=== PATIENT | female | born 1955 | race Caucasian/White ===

== ENCOUNTER 2018-04-05 19:54 | Inpatient (IN) ==
--- NOTE | 2018-04-05 20:19 | Diag Imaging Result Doc PS360 ---
EXAM: CT HEAD W/O CONTRAST - 04/05/2018 HISTORY: new onset seizure TECHNIQUE: CT head without contrast COMPARISON: None. FINDINGS: There is no evidence of intracranial hemorrhage, mass effect, midline shift, or hydrocephalus. There is no evidence of infarct, although acute infarcts may not be immediately visible. There is no evidence of skull fracture. IMPRESSION: No visible acute intracranial abnormality. No hemorrhage or mass effect. This exam was performed using automated exposure control, adjustment of mA or kV according to patient size, and/or use of iterative reconstruction technique. Electronically signed by Chris Olivo 04/05/2018 8:17 PM
[2018-04-05] MEDS ORDERED: ZOFRAN IV ONE (20:56)
[2018-04-05] MEDS ORDERED: NS 1,000 ML IV ONE (20:57)
[2018-04-05] MEDS ORDERED: MORPHINE IV ONE (20:57)
[2018-04-05 22:20] LABS: URINE SOURCE CATH
[2018-04-05 22:27] LABS: BILIRUBIN URINE SMALL (NEGATIVE); BLOOD URINE SMALL (NEGATIVE); COLOR YELLOW; GLUCOSE URINE NEGATIVE (NEGATIVE); KETONE URINE 150 mg/dL (NEGATIVE); LEUKOCYTES URINE NEGATIVE (NEGATIVE); NITRITE URINE POSITIVE (NEGATIVE); PROTEIN URINE 100 mg/dL (NEGATIVE); SP GRAVITY URINE 1.028; TURBIDITY URINE HAZY (CLEAR); UR EPITHELIAL CELLS >10 /HPF (<10); URINE BACTERIA 4+ /HPF; URINE RBC <10 /HPF (<10); UROBILINOGEN URINE 3 mg/dL (NORMAL)
[2018-04-05 23:21] LABS: UR AMPHETAMINES QUAL NONE DETECTED (NONE DETECT); UR BARBITUATES QUAL NONE DETECTED (NONE DETECT); UR BENZODIAZEPIN QUAL PRESUMPTIVE POSITIVE (NONE DETECT); UR CANNABINOIDS QUAL NONE DETECTED (NONE DETECT); UR COCAINE QUAL NONE DETECTED (NONE DETECT); UR METHADONE QUAL NONE DETECTED (NONE DETECT); UR OPIATES QUAL NONE DETECTED (NONE DETECT); UR OXYCODONE QUAL NONE DETECTED (NONE DETECT); UR PCP QUAL NONE DETECTED (NONE DETECT)
[2018-04-05 23:35] LABS: EOS# 0.06 X1000 (0.0-0.7); EOS% 0.5 % (0.0-10.0); HEMATOCRIT 55.8 % (37.0-47.0); HEMOGLOBIN 18.8 g/dL (12.0-16.0); LYMPH# 1.67 X1000 (1.2-3.4); MCH 31.8 PG (27-31); MCHC 33.7 g/dL (33-37); MCV 94.4 FL (81-99); MONO# 0.92 X1000 (0.11-0.59); MONO% 7.7 % (1.7-9.3); MPV 10.9 FL (7.4-10.4); PLT 258 X1000 (130-400); RBC 5.91 XMIL (4.2-5.4); RDW 14.7 % (11.5-14.5); WBC 11.95 X1000 (4.8-10.8)
[2018-04-06 00:40] LABS: LYMPHS 20 % (21-51); MONO 2 % (1-9); SEGS 78 % (42-75)
[2018-04-06 01:32] LABS: AGAP 16; ALB/GLOB RATIO 1.2; ALBUMIN 4.1 g/dL (3.5-5.0); ALKALINE PHOSPHATASE 92 U/L (32-104); BUN 14 mg/dL (8-22); CALCIUM 9.8 mg/dL (8.8-10.2); CHLORIDE 103 mmol/L (98-107); COSMO 286; CREATININE 0.7 mg/dL (0.5-0.9); ESTIMATED GFR > 60; GLUCOSE 100 mg/dL (70-104); GOT 54 U/L (10-30); GPT 66 U/L (10-36); MAGNESIUM 2.4 mg/dL (1.5-2.7); POTASSIUM 3.1 mmol/L (3.5-5.1); SODIUM 143 mmol/L (136-145); TCO2 24 mmol/L (25-35); TOTAL BILIRUBIN 0.88 mg/dL (0.20-1.00); TOTAL PROTEIN 7.4 g/dL (6.3-8.3)
[2018-04-06] MEDS ORDERED: KLOR-CON PO ONE (02:25)
--- NOTE | 2018-04-06 02:27 | PROVIDER DOCUMENTATION ---
This chart was entered by Dawna Ojeda Scribe, acting as scribe for Bernard Arreaga MD. HPI-Syncope/Dizziness - General Chief Complaint: Seizure Stated Complaint: POSSIBLE SEIZURE Time Seen by Provider: 04/05/18 20:25 Source: patient Allergies/Adverse Reactions: Patient Allergies Allergy/AdvReac Type Severity Reaction Status Date / Time No Known Allergies Allergy Verified 04/06/18 00:40 - History of Present Illness-Syncope/Dizzy Nature of Presenting Problem: Pt is 62/F presenting to ED by EMS after possibly seizure. She was found unresponsive on her couch and with a bitten lip and dried blood on her chin. Pt sts that she does not remember what happen or who called EMS. Pt has no hx of seizure. Prior Episodes: reports: no prior history Onset/Duration: reports: just prior to arrival Timing: reports: improving Position/Activity at time of episode: reports: sitting Symptoms prior to episode: reports: unknown (pt does not remember episode) Context: reports: lost consciousness Loss of Consciousness: unsure Location of injury. (If syncope resulted in an injury.): reports: mouth (bit lip ) Current Symptoms: reports: nausea Recently Seen Here or By Another Healthcare Provider: No Review of Systems - Adult - REVIEW OF SYSTEMS - ADULT Constitutional: reports: no symptoms reported. denies: chills, fever Eyes: reports: no symptoms reported Ears, Nose, Mouth & Throat: reports: no symptoms reported Cardiovascular: reports: no symptoms reported. denies: chest pain, edema Respiratory: reports: no symptoms reported. denies: cough, shortness of breath , wheezing Gastrointestinal: reports: nausea. denies: vomiting Genitourinary: reports: no symptoms reported Musculoskeletal: reports: no symptoms reported Integumentary: reports: no symptoms reported Neurological: reports: no symptoms reported. denies: dizziness/vertigo, headache/migraines Psychiatric: reports: no symptoms reported Endocrine: reports: no symptoms reported Hematologic/Lymphatic: reports: no symptoms reported Allergic/Immunologic: reports: no symptoms reported Past History - Adult - PAST MEDICAL HISTORY-ADULT Review of Records: reports: Old Records Reviewed, Nursing Assessment Review, Medications Reviewed, Social history reviewed & non-contributory. - SOCIAL HISTORY Living Situation: alone Physical Exam-General - PHYSICAL EXAM-ADULT Initial Vital Signs Reviewed: Yes - CONSTITUTIONAL General Appearance: appears well, alert, no apparent distress, obese, other (pt has dried blood on chin) - EYES Eyes: PERRL/EOMI, pink conjunctivae - HEAD, EARS, NOSE, MOUTH & THROAT HENMT: normocephalic/atraumatic, moist mucous membranes, normal ENT inspection, TMs normal, pharynx normal - NECK Neck: non-tender, full range of motion, supple, normal inspection - RESPIRATORY Respiratory: lungs clear - CARDIOVASCULAR Cardiovascular: normal peripheral pulses, no edema, tachycardia - LYMPHATIC Lymphatic: no adenopathy - MUSCULOSKELETAL Back Exam: normal inspection Extremity: normal range of motion, non-tender, normal gait, normal inspection - SKIN Integumentary: normal color, warm/dry - NEUROLOGIC Neurologic: grossly normal - PSYCHIATRIC Psych/Mental Status: normal mood/affect, normal thought content, normal thought process, oriented x 3 (pt answers all questions and appears to be at normal mentation) Progress - PLAN OF CARE/RESULTS Progress/Plan/Lab Results: Vital Signs - 8 hr 04/05/18 20:17 04/05/18 20:49 04/05/18 20:50 Temperature 98.5 F Pulse Rate 107 H 105 H Respiratory Rate 25 H 25 H Blood Pressure 149/93 O2 Sat by Pulse Oximetry 96 93 L 93 L 04/05/18 20:51 04/05/18 21:00 04/05/18 21:02 Temperature Pulse Rate 110 H 112 H 110 H Respiratory Rate 24 26 H 24 Blood Pressure 157/105 166/97 O2 Sat by Pulse Oximetry 95 94 L 93 L 04/05/18 21:14 04/05/18 21:20 04/05/18 21:30 Temperature Pulse Rate 115 H 113 H 111 H Respiratory Rate 14 24 29 H Blood Pressure O2 Sat by Pulse Oximetry 96 93 L 96 04/05/18 21:32 04/05/18 21:40 04/05/18 21:50 Temperature Pulse Rate 118 H 116 H 113 H Respiratory Rate 17 19 26 H Blood Pressure 139/95 O2 Sat by Pulse Oximetry 95 94 L 95 04/05/18 22:00 04/05/18 22:02 04/05/18 22:10 Temperature Pulse Rate 106 H 102 H 102 H Respiratory Rate 23 23 22 Blood Pressure 156/88 O2 Sat by Pulse Oximetry 96 94 L 94 L 04/05/18 22:20 04/05/18 22:30 04/05/18 22:40 Temperature Pulse Rate 120 H 118 H 114 H Respiratory Rate 26 H 16 24 Blood Pressure O2 Sat by Pulse Oximetry 95 94 L 97 04/05/18 22:50 04/05/18 23:00 04/05/18 23:10 Temperature Pulse Rate 117 H 111 H 110 H Respiratory Rate 14 24 25 H Blood Pressure O2 Sat by Pulse Oximetry 94 L 93 L 93 L 04/05/18 23:20 04/05/18 23:30 04/05/18 23:32 Temperature Pulse Rate 113 H 111 H 114 H Respiratory Rate 17 21 23 Blood Pressure 151/97 O2 Sat by Pulse Oximetry 91 L 92 L 95 04/05/18 23:40 04/05/18 23:50 04/06/18 00:00 Temperature Pulse Rate 108 H 114 H 109 H Respiratory Rate 25 H 16 20 Blood Pressure O2 Sat by Pulse Oximetry 91 L 94 L 90 L Laboratory Results - last 24 hr 04/05/18 04/05/18 04/05/18 21:40 21:40 21:40 WBC RBC Hgb Hct MCV MCH MCHC RDW Std Deviation Plt Count MPV Immature Gran % (Auto) Neut % (Auto) Lymph % (Auto) Bland % (Auto) Eos % (Auto) Baso % (Auto) Immature Gran # (Auto) Neut # (Auto) Lymph # (Auto) Bland # (Auto) Eos # (Auto) Baso # (Auto) Segmented Neutrophils Lymphocytes Monocytes Sodium Potassium Chloride Carbon Dioxide Anion Gap BUN Creatinine Estimated GFR/1.73 m2 BUN/Creatinine Ratio Glucose Calculated Osmolality Calcium Magnesium Total Bilirubin AST ALT Alkaline Phosphatase Troponin T Total Protein Albumin Globulin Albumin/Globulin Ratio Urine Source CATH Urine Color YELLOW Urine Turbidity HAZY Urine pH 6.0 Ur Specific [place] 1.028 Urine Protein 100 A Ur Glucose (Stick) NEGATIVE Ur Ketones (Stick) 150 A Urine Blood SMALL A Urine Nitrite POSITIVE A Urine Bilirubin SMALL A Urobilinogen Dipstick 3 A Urine Leukocytes NEGATIVE Urine WBC (Auto) 10-20 A Urine RBC (Auto) <10 U Epithel Cells (Auto) >10 A Urine Bacteria (Auto) 4+ Urine Test NEGATIVE Urine Opiates Screen NONE DETECTED Ur Oxycodone Screen NONE DETECTED Ur Methadone, Qual NONE DETECTED Ur Barbiturates Screen NONE DETECTED Ur Phencyclidine Scrn NONE DETECTED Ur Amphetamines Screen NONE DETECTED U Benzodiazepines Scrn PRESUMPTIVE POSITIVE A Urine Cocaine Screen NONE DETECTED U Cannabinoids Screen NONE DETECTED 04/05/18 04/05/18 04/05/18 22:37 23:50 23:50 WBC 11.95 H RBC 5.91 H Hgb 18.8 H Hct 55.8 H MCV 94.4 MCH 31.8 H MCHC 33.7 RDW Std Deviation 14.7 H Plt Count 258 MPV 10.9 H Immature Gran % (Auto) Not Reportable Neut % (Auto) Not Reportable Lymph % (Auto) 14.0 L Bland % (Auto) 7.7 Eos % (Auto) 0.5 Baso % (Auto) Not Reportable Immature Gran # (Auto) Not Reportable Neut # (Auto) Not Reportable Lymph # (Auto) 1.67 Bland # (Auto) 0.92 H Eos # (Auto) 0.06 Baso # (Auto) Not Reportable Segmented Neutrophils 78 H Lymphocytes 20 L Monocytes 2 Sodium 143 Potassium 3.1 L Chloride 103 Carbon Dioxide 24 L Anion Gap 16 BUN 14 Creatinine 0.7 Estimated GFR/1.73 m2 > 60 BUN/Creatinine Ratio 20 Glucose 100 Calculated Osmolality 286 Calcium 9.8 Magnesium 2.4 Total Bilirubin 0.88 AST 54 H ALT 66 H Alkaline Phosphatase 92 Troponin T < 0.010 Total Protein 7.4 Albumin 4.1 Globulin 3.3 Albumin/Globulin Ratio 1.2 Urine Source Urine Color Urine Turbidity Urine pH Ur Specific [place] Urine Protein Ur Glucose (Stick) Ur Ketones (Stick) Urine Blood Urine Nitrite Urine Bilirubin Urobilinogen Dipstick Urine Leukocytes Urine WBC (Auto) Urine RBC (Auto) U Epithel Cells (Auto) Urine Bacteria (Auto) Urine Test Urine Opiates Screen Ur Oxycodone Screen Ur Methadone, Qual Ur Barbiturates Screen Ur Phencyclidine Scrn Ur Amphetamines Screen U Benzodiazepines Scrn Urine Cocaine Screen U Cannabinoids Screen Orders Category Date Time Status Finger Stick Blood Sugar (ED) DIRECTED Care 04/05/18 20:25 Active Notify MD if DIRECTED Care 04/05/18 20:25 Active Saline Loc NOW Care 04/05/18 20:[address] HEAD W/O CONTRAST [CT] Stat Exams 04/05/18 19:54 Completed ALCOHOL BLOOD Stat Lab 04/05/18 22:00 Ordered CBC WITH ELECTRONIC DIFF [HEME] Stat Lab 04/05/18 22:37 Completed COMPREHENSIVE METABOLIC PANEL [CHEM] Stat Lab 04/05/18 23:50 Completed LACTATE, PLASMA [CHEM] Stat Lab 04/05/18 22:00 Ordered MAGNESIUM [CHEM] Stat Lab 04/05/18 23:50 Completed TEST-URINE [PREG] Stat Lab 04/05/18 21:40 Completed TROPONIN T Stat Lab 04/05/18 23:50 Completed UA [URINALYSIS] [URINALYSIS] Stat Lab 04/05/18 21:40 Completed URINE DRUG SCREEN Stat Lab 04/05/18 21:40 Completed 0.9% Sodium Chloride Inj [Ns] 1,000 ml Med 04/05/18 20:57 Discontinued IV 999 mls/hr Morphine Med 04/05/18 20:57 Discontinued 4 mg IV NOW ONE Ondansetron [Zofran] Med 04/05/18 20:56 Discontinued 8 mg IV NOW ONE Seizure, New Onset Stat Oth 04/05/18 20:25 Ordered EKG [EKG] Stat Ther 04/05/18 21:24 Ordered Result Diagrams: 04/05/18 22:37 04/05/18 23:50 - CT/MRI 1 CT Study: Head Impression: Normal (MPRESSION: No visible acute intracranial abnormality. No hemorrhage or mass effect. This exam was performed using automated exposure control, adjustment of mA or kV according to patient size, and/or use of iterative reconstruction technique. Electronically signed by Chris Olivo 04/05/2018 8:17 PM [id number]) Departure - Departure Date of Disposition Decision: 04/06/18 Time of Disposition Decision: 02:26 DIAGNOSIS: Seizure Altered mental status Qualifiers: Altered mental status type: unspecified Qualified Code(s): R41.82 - Altered mental status, unspecified Disposition: ADMITTED INPATIENT 09 Certified Medical Emergency: Emergent Condition: Stable Referrals and Follow-Ups: Paloma Odonnell MD [Primary Care Provider] - - Critical Care Note This patient required my direct & personal management of CC.: No Attestation - Physician/ FREDERICK Attestation Patient care was provided by Advanced Practice Provider:: No The physician spent face to face time with patient:: Yes Advanced Practice Provider documentation review:: Supervising physician onsite and consulted in the evaluation and care of this patient. The physician did have a face to face encounter with the patient. This chart was documented by the indicated rudiibe (Dawna Ojeda, Scribe) and accurately reflects the services I performed and decisions made by me, Bernard Arreaga MD, as attested by the provider's signature.
[2018-04-06] MEDS ORDERED: ZOFRAN IV PRN (03:01)
[2018-04-06 03:32] LABS: ALLEN TEST YES; BE 3.2 mmoll (-3.0-3.0); BLOOD TYPE ARTERIAL; HCO3-(ACT) 27.2 mmoll (20.0-26.0); METHB 0.9 % (0.0-1.5); O2HB 91.4 % (95.0-99.0); PCO2(98.6) 45 mmHg (35-45); PO2(98.6) 59 mmHg (60-100); SAMPLE BLOOD; SAO2 93.6 % (95.0-100.0); THB 14.8 g/dL (11.5-17.4); pH(98.6) 7.41 (7.35-7.45)
[2018-04-06 03:33] LABS: MODALITY CANNULA
[2018-04-06] MEDS: ZOSYN 3.375 GM in NS 50 ML IV SCH ×4 (03:56→20:57)
--- NOTE | 2018-04-06 04:16 | HISTORY AND PHYSICAL ---
PRIMARY CARE PROVIDER: Lazaro Odonnell. CHIEF COMPLAINT: Unresponsive. HISTORY OF PRESENT ILLNESS: Ms. Shepard is a 62-year-old female who was brought into the emergency room today by EMS. She has no family at bedside. She was originally totally obtunded. She became more and more awake and alert as she was in the ER. She is oriented to person, place, disoriented to time and situation. She had no recollection of why she is in the hospital and she has no complaint other than mild burning with urination sometimes. A CT was obtained of her head which was normal. Laboratory data was unremarkable other than a hemoglobin and hematocrit elevated at 18.8 and 55.8 respectively. Per the EMS account to the ER provider , she had bit her bottom lip and had fresh blood on arrival and she urinated on herself. She will be admitted to the medical floor for further evaluation and treatment. PAST MEDICAL HISTORY: Patient denies past medical history. However, she appears to be on medications for GERD, hypertension and possibly anxiety. PREVIOUS SURGICAL HISTORY: Again, this list may be incomplete but she stated she has had cataract surgery. SOCIAL HISTORY: States she lives alone. Denies tobacco, alcohol or illicit drugs. FAMILY HISTORY: States that her father from cancer. She was unable to tell me what kind and she was unable to tell me what her mother from. ALLERGIES: No known drug allergies. HOME MEDICATIONS: 1. Diflucan 100 mg p.o. as directed. 2. Mobic 1 tablet p.o. daily. 3. Phentermine 50 mg p.o. daily. 4. Bisoprolol/hydrochlorothiazide 5/6.25 one p.o. daily. 5. Klonopin 0.5 mg 1 tablet p.o. b.i.d. 6. Protonix 40 mg p.o. daily. REVIEW OF SYSTEMS: This could not be fully completed. The patient denied complaint other than stating she had some burning with urination, otherwise denies any complaints. Pertinent positives for admission are listed above in the HPI. PHYSICAL EXAMINATION: VITAL SIGNS: Temperature 98.5, pulse 109, respirations 20, blood pressure 151/ 97, oxygen saturation 92% on 2 L nasal cannula. GENERAL: Confused 62-year-old female lying in the ER stretcher. She is oriented to person and place, disoriented to time and situation. She is in no acute distress. HEENT: Head is atraumatic, normocephalic. Pupils equal, round, reactive to light. Extraocular eye movement is intact. Sclerae are anicteric. Conjunctiva is pink. Oral mucosa is moist. NECK: Supple. No JVD. No thyromegaly. Trachea is midline. No cervical lymphadenopathy. CARDIAC: S1, S2 appreciated. Tachycardic. No murmurs, gallops, or rubs. LUNGS: Crepitations noted bilateral bases. Decreased bilaterally. No wheezing. Symmetrical rise and fall with respirations. ABDOMEN: Protuberant, soft, nondistended, nontender. Bowel sounds present all 4 quadrants, normoactive. No pulsatile mass. No organomegaly. EXTREMITIES: No clubbing, cyanosis, or edema. Two-plus pedal pulses bilaterally. GENITOURINARY: No bladder distention. No suprapubic tenderness. Patient voids. Otherwise deferred. BACK: No CVA tenderness. No vertebral tenderness. NEUROLOGICAL: Oriented to person and place. Disoriented to time and situation. Cranial nerves II through XII appear to be grossly intact. MUSCULOSKELETAL: All 4 extremities within normal limits. DIAGNOSTIC DATA: CT of the head: No acute intracranial process. LABORATORY DATA: WBC 11.95. Hemoglobin 18.8. Hematocrit 55.8. Platelet count 258. Sodium 143. Potassium 3.1. Chloride 103. Carbon dioxide 24. BUN 14. Creatinine 0.7. Glucose 100. AST 54. ALT 66. Urine: Nitrite positive, 10-20 WBC cells, greater than 10 epithelial cells, 4-plus bacteria. Toxicology screen presumptively positive for benzodiazepines. ASSESSMENT AND PLAN: 1. Seizure versus cerebrovascular accident versus transient ischemic attack. The patient apparently was what the ER referred to as postictal on arrival. She gradually did become more awake and alert. She still remains disoriented. There is no family at bedside. However, have to think this is not the patient's baseline. Order MRI tomorrow morning. CT scan was normal. We will defer to Dr. Odonnell. Neurology consultation. 2. Polycythemia of unknown etiology. Patient's hemoglobin and hematocrit appear to be borderline high on a regular basis. As far as I know, she does not have any chronic respiratory illnesses such as COPD. We will order erythropoietin. It is possible this is related to dehydration. However, she would be fairly hemoconcentrated. That did not appear to be the case. We will give normal saline 100 mL an hour. She received a normal saline bolus in the emergency room. 3. Urinary tract infection. It is possible that the patient also has an infectious encephalopathy secondary to urinary tract infection. However, this is usually seen in a more elderly patient population. Treat patient with Zosyn IV. 4. Questionable cellulitis of the lower lip. The patient did acutely bite her lip before coming into the emergency room. However, this appears to be a chronic problem. She has what appears to be a pustule on the lower lip. We have chosen to treat her urinary tract infection with Zosyn to cross cover for anaerobes. Nursing applied Blistex to the lip. Keep the area dry and clean. 5. Transaminitis. This could be related to fatty liver disease. Patient has not had any imaging of her abdomen. This could also be transient. We will defer further workup if necessary to her primary care provider, Lazaro Odonnell. Patient was coarse on examination. Chest x-ray, ABG are pending. We will give DuoNebs. She was also hypoxic on bedside oxygen saturation monitoring. We will continue to monitor. Further recommendations per patient clinical course. Dictated by NICHOLE Li for Will Low MD cc: NICHOLE Li MD M. Neel Roberts, MD I performed my own independent exam and did my assessment with [employer] at bedside. Pt 's polycythemia seems more likely due to chronic hypoxia from underlying lung disease as opposed to a primary myeloproliferative disorder . Chest films still pending and will not be surprised if she has ILD or subclinical CHF. Pt's overall picture could be related to a seizure activity ? cause. MRI brain with and without contrast will be ordered to rule out KRISTIN, hippocampal sclerosis or infarct. Agree with choice of abx for to cover UTI gram negatives and probable lower lip cellulitis from intentional repeated biting for anaerobes. Not sure if patient has underlying psych issues. [facility]
[2018-04-06] MEDS ORDERED: BLISTEX MEDICATED BERRY LIP BALM TOP ONE (04:22)
[2018-04-06] MEDS: DUONEB (A & A) INH SCH ×4 (05:32→23:00)
[2018-04-06 06:32] LABS: BASO# 0.02 X1000 (0.0-0.2); BASO% 0.2 % (0.0-0.8); EOS# 0.09 X1000 (0.0-0.7); EOS% 0.7 % (0.0-10.0); HEMATOCRIT 44.4 % (37.0-47.0); HEMOGLOBIN 14.3 g/dL (12.0-16.0); IMM GRAN# 0.04 X1000 (0.0-0.04); IMM GRAN% 0.3 % (0.0-0.5); LYMPH# 1.42 X1000 (1.2-3.4); LYMPH% 11.7 % (20.5-51.1); MCH 30.3 PG (27-31); MCHC 32.2 g/dL (33-37); MCV 94.1 FL (81-99); MONO# 0.92 X1000 (0.11-0.59); MONO% 7.6 % (1.7-9.3); MPV 10.6 FL (7.4-10.4); NEUT# 9.67 X1000 (1.4-6.5); NEUT% 79.5 % (42.2-75.2); PLT 247 X1000 (130-400); RBC 4.72 XMIL (4.2-5.4); RDW 13.9 % (11.5-14.5); WBC 12.16 X1000 (4.8-10.8)
--- NOTE | 2018-04-06 06:37 | EKG Report ---
Test Performed on : 04/05/2018 10:17:31 PM Test Reason : seizure Blood Pressure : / mmHG Vent. Rate : 115 BPM Atrial Rate : 115 BPM P-R Int : 172 ms QRS Dur : 086 ms QT Int : 340 ms P-R-T Axes : 050 -15 009 degrees QTc Int : 470 ms Sinus tachycardia. Otherwise normal ECG No previous ECGs available Unconfirmed Result
--- NOTE | 2018-04-06 06:43 | Diag Imaging Result Doc PS360 ---
CHEST-PORTABLE - 04/06/2018 INDICATION: course COMPARISON: None FINDINGS: There is some nonspecific patchy atelectasis or infiltrate in the lung bases bilaterally. Heart size is normal. Pulmonary vascularity is normal. No pneumothorax or pleural effusion. IMPRESSION: Nonspecific patchy atelectasis or infiltrate in the lung bases. Atelectasis is favored. Electronically signed by Olvin Bermeo 04/06/2018 6:41 AM
--- NOTE | 2018-04-06 08:53 | Diag Imaging Result Doc PS360 ---
EXAM: CT THORAX W/WO CONTRAST INDICATION: hypoxia chronic TECHNIQUE: This exam was performed using automated exposure control, adjustment of mA or kV according to patient size, and/or use of iterative reconstruction technique. COMPARISON: None. FINDINGS: There is subsegmental atelectasis at both lung bases. It is possible that there is a component of fibrosis. There is a 4.9 mm noncalcified nodule in the right lower lobe, statistically most likely a granuloma if the patient is low risk (i.e., a nonsmoker). The lungs are clear, otherwise. There is no pleural fluid collection and no pneumothorax. There is no cardiomegaly. There is no significant mediastinal or hilar lymphadenopathy. Limited views of the upper abdomen reveals diffuse hepatic steatosis. IMPRESSION: 1.Subsegmental atelectasis at the lung bases. Although less likely, it is possible that there is a component of mild fibrosis as well. 2.Subcentimeter nodule in the right lower lobe as described that statistically most likely represents a granuloma. Electronically signed by Barak Duggan 04/06/2018 8:51 AM
[2018-04-06] MEDS: KLONOPIN PO SCH ×2 (10:20→20:57)
[2018-04-06] MEDS: PROTONIX PO SCH (10:21)
[2018-04-06] MEDS: ZIAC 5/6.25 MG PO SCH (10:21)
--- NOTE | 2018-04-06 12:01 | Diag Imaging Result Doc PS360 ---
MRI BRAIN WO CONTRAST - 04/06/2018 INDICATION: cva? lesion? COMPARISON: Head CT 04/05/2018 FINDINGS: There is no area of restricted diffusion. The ventricles and sulci are normal in size and contour. No intracranial mass or hemorrhage. Midline structures including the optic chiasm and pituitary are normal. IMPRESSION: Negative exam. Electronically signed by Olvin Bermeo 04/06/2018 11:59 AM
--- NOTE | 2018-04-06 14:41 | PROGRESS NOTE ---
DATE: 04/06/2018 SUBJECTIVE: Mrs. Shepard was admitted to [facility] for evaluation of unresponsiveness. Her family had tried to reach her, but had been unable to get in contact with her. They found her lying on the sofa unconscious. She had bitten her lip, and had loss control of her bladder. She has had no previous history of a seizure disorder. When she woke up, she was confused, disoriented, and had difficulty answering questions appropriately. Her initial CT scan of the brain was grossly unremarkable. When I saw her during lunch today, she was awake and easily arousable, and was oriented to name, place, and time. She was able to answer questions appropriately. She knew who the President of [facility] was, but did not know the governor of the [facility]. Dr. Low had ordered an MRI of the brain which was negative for any obvious abnormalities. She does have a longstanding history of hypertension. Her blood pressure is well controlled. She denies any chest pain, palpitations, or anginal equivalents. She does have a UTI. She is with complaint of dysuria and increased urinary frequency. Urinalysis on admission demonstrated small blood, positive nitrates, and positive white blood cells. She is on Zosyn. OBJECTIVE: Temperature 97.9 degrees, pulse 85, respirations 16, and BP 126/77. CV: Regular rate and rhythm. Lungs: Clear. Abdomen: Soft, nontender with active bowel sounds. No hepatosplenomegaly. No abdominal bruits. Extremities: She is alert and oriented to name, place, and time. Cranial nerves 2-12 intact grossly. She has normal tone and strength in the upper and lower extremities bilaterally. DIAGNOSTIC: A chest x-ray demonstrated atelectasis in the lung bases. A follow up CT of the thorax without contrast demonstrated mild fibrosis and atelectasis. There was no evidence of pneumonia. ASSESSMENT AND PLAN: 1. Hypertension. Her blood pressure is well controlled. We will continue Ziac daily. 2. Altered mental status. She does not have any focal neurologic deficits. A CT and MRI of the brain were within normal limits. I do not believe that she had a TIA or stroke. I am concerned that she had a seizure. The only electrolyte abnormality was a serum potassium of 3.1. She had taken Levaquin several weeks ago for an upper respiratory tract infection. Levaquin can cause seizures. We will continue neuro checks every 3 hours for 24 hours, and I will arrange for an EEG. cc: Erick Odonnell MD
[2018-04-06] MEDS: NS 1,000 ML IV SCH ×2 (16:19→20:57)
[2018-04-07] MEDS: DUONEB (A & A) INH SCH ×4 (03:43→21:15)
[2018-04-07] MEDS: ZOSYN 3.375 GM in NS 50 ML IV SCH ×4 (03:55→21:17)
[2018-04-07 07:42] LABS: AGAP 11; BUN 8 mg/dL (8-22); CALCIUM 8.9 mg/dL (8.8-10.2); CHLORIDE 106 mmol/L (98-107); COSMO 283; CREATININE 0.7 mg/dL (0.5-0.9); ESTIMATED GFR > 60; GLUCOSE 96 mg/dL (70-104); POTASSIUM 2.9 mmol/L (3.5-5.1); SODIUM 143 mmol/L (136-145); TCO2 26 mmol/L (25-35)
[2018-04-07] MEDS: ZIAC 5/6.25 MG PO SCH (10:43)
[2018-04-07] MEDS: KLOR-CON PO SCH ×2 (10:44→21:17)
[2018-04-07] MEDS: KLONOPIN PO SCH ×2 (10:45→21:17)
[2018-04-07] MEDS: NS 1,000 ML IV SCH (10:46)
[2018-04-07] MEDS: PROTONIX PO SCH (10:46)
[2018-04-07] MEDS: PROZAC PO SCH (10:47)
--- NOTE | 2018-04-07 11:13 | PROGRESS NOTE ---
DATE: 04/07/2018 SUBJECTIVE: Ms. Shepard was admitted to [facility] with altered mental status. CT scans of the brain as well as MRI of the brain have been within normal limits. She remains in normal sinus rhythm on telemetry. We suspect that she had an isolated seizure. Clinically, she is much more alert. She is oriented to name and place. She still cannot tell me the year. Staff has told me that she still calls every gentleman that walks into her room Dr. Odonnell. OBJECTIVE: Blood pressure remains stable. Systolic blood pressures range from 130 to 145, whereas her diastolic blood pressures have ranged from 59 to 71. Temperature is 98.8, pulse 90, respirations 12, blood pressure 145/59. Cardiovascular: Regular rate and rhythm. Lungs clear. Abdomen: Soft, nontender, with active bowel sounds. Neurologic: She moves all extremities grossly. Deep tendon reflexes are 2+ and symmetric. Cranial nerves II through XII intact grossly. She is alert and oriented to name and place. ASSESSMENT AND PLAN: 1. Altered mental status. I suspect she had an isolated seizure. An EEG was performed yesterday, but the report is not back as of the time of this dictation. She has not had any further seizure activity. She is approaching her baseline neurologically but still is not oriented to time. We will continue to monitor her overnight, and if she is returned to her baseline neurologically, we will plan to discharge home in the morning. 2. Hypokalemia. I will give potassium chloride 40 mEq p.o. b.i.d. and recheck a BMP in the morning. 3. Hypertension. Her blood pressure is stable. We will continue the Ziac. 4. Urinary tract infection. We will continue Zosyn pending her urine culture and sensitivity. cc: Erick Odonnell MD
[2018-04-08] MEDS: ZOSYN 3.375 GM in NS 50 ML IV SCH ×2 (03:08→09:12)
[2018-04-08] MEDS: NS 1,000 ML IV SCH (03:09)
[2018-04-08] MEDS: DUONEB (A & A) INH SCH ×4 (03:15→21:00)
[2018-04-08 07:45] LABS: AGAP 15; BUN 6 mg/dL (8-22); CALCIUM 8.9 mg/dL (8.8-10.2); CHLORIDE 110 mmol/L (98-107); COSMO 284; CREATININE 0.7 mg/dL (0.5-0.9); ESTIMATED GFR > 60; GLUCOSE 88 mg/dL (70-104); POTASSIUM 4.3 mmol/L (3.5-5.1); SODIUM 144 mmol/L (136-145); TCO2 19 mmol/L (25-35)
[2018-04-08] MEDS: PROTONIX PO SCH (10:39)
[2018-04-08] MEDS: ZIAC 5/6.25 MG PO SCH (10:39)
[2018-04-08] MEDS: KLOR-CON PO SCH ×2 (10:40→21:47)
[2018-04-08] MEDS: KLONOPIN PO SCH ×2 (10:40→21:47)
[2018-04-08] MEDS: PROZAC PO SCH (10:42)
--- NOTE | 2018-04-08 12:15 | DISCHARGE SUMMARY ---
ADMISSION DATE: 04/06/2018 DISCHARGE DATE: 04/08/2018 DISCHARGE DIAGNOSES: 1. Syncopal episode. 2. Suspected isolated seizure secondary to hypokalemia. 3. Essential hypertension. 4. Depression. 5. Obesity. 6. Gastroesophageal reflux disease. DISCHARGE INSTRUCTIONS: 1. Return to clinic in 2 weeks to see me, Dr. Lazaro Odonnell, in anticipation of a transition of care visit. 2. Activity as tolerated. 3. Healthy heart diet. MEDICATIONS: Ziac 5/6.25 mg daily. Klonopin 0.5 mg b.i.d. Prozac 20 mg daily. Pantoprazole 40 mg daily. PHYSICAL EXAMINATION: General: This is a well-developed, well-nourished, 62-year-old, lady in no apparent distress. Vital signs: She is afebrile, pulse 84, respiratory rate 22, BP 125/41. Cardiovascular: Regular rate and rhythm. Lungs: Clear. Abdomen: Soft, nontender, with active bowel sounds. HOSPITAL COURSE: Ms. Shepard was transferred via ambulance to [facility] for evaluation of altered mental status and syncopal episode. She remained in normal sinus rhythm throughout her [*]. Blood pressure remains stable. Because of the prolonged confusion and disorientation, we were concerned about the possibility of an isolated seizure. A CT scan of the brain was unremarkable. A follow-up MRI of the brain was unremarkable. She had persistent hypokalemia with a serum potassium of 2.8 on admission. We repleted her potassium, and her potassium was 4.3 on discharge. She had no further seizure activity. Over the next 48 hours, her mental status improved significantly. She was back to her baseline neurologically. An EEG was performed, and the results are still pending at the time of discharge. We will follow her up in the clinic, and because the seizure appears to be related to a reversible cause, I do not believe that seizure medications are indicated at this time. If her EEG were to demonstrate seizure activity or if she were to have a recurrent seizure, then I believe we would need to treat her with medications. She has a longstanding history of hypertension. Her blood pressure remained well controlled on Ziac. She denied any chest pain, palpitations, or anginal equivalents. She had been taking phentermine for weight loss, but because it potentially could cause arrhythmias which could lead to syncopal episodes, I am going to stop it. She has had several of deaths in the family, including her mother and brother. She is not sleeping well at night. Her moods are fluctuating. She denies any suicidal or homicidal ideation. We will continue Klonopin 0.5 mg b.i.d. and add Prozac 20 mg daily. Having reached maximum hospital benefit, the patient was discharged in a stable condition. cc: Erick Odonnell MD
[2018-04-09] MEDS: DUONEB (A & A) INH SCH ×4 (03:25→21:30)
[2018-04-09] MEDS: PROZAC PO SCH (09:24)
[2018-04-09] MEDS: PROTONIX PO SCH (09:24)
[2018-04-09] MEDS: ZIAC 5/6.25 MG PO SCH (09:25)
[2018-04-09] MEDS: KLOR-CON PO SCH ×2 (09:26→22:55)
[2018-04-09] MEDS: KLONOPIN PO SCH ×2 (09:33→22:55)
[2018-04-09] MEDS ORDERED: BLISTEX MEDICATED BERRY LIP BALM TOP PRN (09:48)
--- NOTE | 2018-04-09 11:11 | EEG REPORT ---
DATE: 04/06/2018 REFERRING PHYSICIAN: Dr. Lazaro Odonnell [facility] REPRESENTATIVE: Tracy Watt BACKGROUND INFORMATION AND TECHNIQUE: This is a digitally recorded routine EEG with video. HISTORY: This is a 62-year-old female patient brought in by EMS with possible seizure event. She was obtunded initially and became more awake and alert with time. She is currently oriented to person, place and time. She cannot recall why she is in the hospital. Head CT was normal. She denied significant medical history. Per EMS, the patient had urinated on herself and bit her lip and was obtunded. EEG is ordered to detect evidence of seizures. MEDICATIONS: Klor-Con, Zofran, Zosyn. EEG FINDINGS: A moderately well formed 10 hertz posterior dominant alpha rhythm is seen symmetrically in the occipital regions and attenuates with eye opening. The anterior background at maximal alertness consists of mixed alpha and beta range frequencies. No definite persistent focal slowing. Occasional to intermittent bursts of generalized appearing, bifrontally predominant, spike wave and sharp wave discharges are seen throughout the record, becoming more frequent during drowsiness and sleep. Bursts are up to 10 seconds in duration. No definite seizures. No clinical correlation on video. Hyperventilation was not performed. Photic stimulation induced a normal driving response. The patient becomes drowsy and enters into stage II sleep. EKG demonstrates regular RR intervals. IMPRESSION AND CLINICAL CORRELATION: Abnormal routine EEG due to generalized appearing epileptiform discharges as detailed above. 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 Clinical correlation is recommended. cc: MD Erick Salcido MD [facility]
[2018-04-09] MEDS: KEPPRA 500 MG/NS 500 MG/100 ML IVPB IV SCH (14:32)
--- NOTE | 2018-04-09 17:29 | PROGRESS NOTE ---
DATE: 04/09/2018 The events of yesterday afternoon were noted. Apparently Mrs. Shepard had confusion and disorientation last night and the family did not feel comfortable taking her home. She had been admitted to [facility] with what appeared to be a isolated seizure. The EEG from 04/06/2018 was officially read and demonstrated generalized appearing epileptiform discharges consistent with generalized epilepsy syndrome. I suspect that she may be having subclinical seizures. No one has noted any further seizure activity such as loss of control of bowels or tonic colonic movements but certainly worsening confusion could represent postictal state. Based on the abnormal EEG I am concerned that she does have an underlying seizure disorder. Blood pressure is stable. She denies any chest pain, palpitations, or anginal equivalents. Temperature 97.6 degrees, pulse 89, respirations 16, BP 121/69.CV: Regular rate and rhythm. Lungs: Clear. Abdomen: Soft, nontender with active bowel sounds. No hepatosplenomegaly. No abdominal bruits. ASSESSMENT AND PLAN: 1. Seizure disorder. I will begin Keppra 500 mg IV q.12 hours and will monitor her closely. We will consult Human Resources Psychologist for arrangements of home health. She understands that under state law that she cannot drive for a minimum of 6 months after having a seizure. 2. Depression. I have started Paxil 20 mg daily. 3. Hypertension. Her blood pressure is stable. We will continue her current regimen of medications. cc: Erick Odonnell MD
[2018-04-10] MEDS: KEPPRA 500 MG/NS 500 MG/100 ML IVPB IV SCH (01:02)
[2018-04-10] MEDS: DUONEB (A & A) INH SCH ×2 (03:30→10:33)
[2018-04-10 07:50] VITALS: BP 116/84
[2018-04-10] MEDS ORDERED: KEPPRA PO SCH (09:00)
[2018-04-10] MEDS: PROTONIX PO SCH (09:31)
[2018-04-10] MEDS: PROZAC PO SCH (09:31)
[2018-04-10] MEDS: KLONOPIN PO SCH (09:31)
[2018-04-10] MEDS: ZIAC 5/6.25 MG PO SCH (10:15)
--- NOTE | 2018-04-13 07:05 | DISCHARGE SUMMARY ---
ADMISSION DATE: 04/05/2018 DISCHARGE DATE: 04/10/2018 DISCHARGE DIAGNOSES: 1. Syncopal episode. 2. New onset grand mal seizure with underlying seizure disorder. 3. Major depression. 4. Obesity. 5. Gastroesophageal reflux disease. 6. Essential hypertension. 7. Hypokalemia. DISCHARGE INSTRUCTIONS: 1. Return to clinic in 1 week to see me, Dr. Lazaro Odonnell. 2. Activity as tolerated. 3. Healthy heart diet. MEDICATIONS: 1. Fluoxetine 20 mg daily. 2. Pantoprazole 40 mg daily. 3. Keppra 500 mg b.i.d. 4. Clonazepam 1 mg p.o. b.i.d. 5. Ziac 5/6.25 mg daily. 6. Meloxicam 7.5 mg daily. DISCHARGE PHYSICAL EXAMINATION: General: This is a well-developed, well-nourished, 62-year-old, lady, in no apparent distress. Vital signs: She is afebrile. Pulse 92, respirations 16, blood pressure 116/84. HOSPITAL COURSE: Ms. Malena velasquez was found by members of her family and was transported to the emergency room by EMS. When they originally found her, she was completely obtunded and was unresponsive. She had bitten her lip. There was evidence of loss of urinary control. Over the next couple of hours, she slowly began to wake up but had persistent waxing and waning confusion over the next day. Her initial CT scan of the brain demonstrated chronic white matter changes. There was no evidence of intracranial hemorrhage, mass effect, midline shift or hydrocephalus. No skull fracture was noted. Electrolytes demonstrated a potassium of 2.8. Her potassium was supplemented and normalized. A followup MRI of the brain was unremarkable. Over the next day or so, she began to improve greatly, her mental status improved significantly. She was awake and easily arousable. She answered questions appropriately. She had been on Levaquin for a URI and her potassium was low. I suspected that she had an isolated seizure due to the Levaquin and hypokalemia. She had no previous seizures. When I rounded on her on Monday morning, she was awake and easily arousable. She was oriented to name, place, and time. We felt that she was stable for discharge. Apparently that afternoon, the family noted more confusion and disorientation and Dr. Jennings canceled the discharge. We had ordered an EEG on 04/06/2018 and a final report demonstrated generalized appearing epileptiform discharges consistent with a generalized epilepsy syndrome. The patient was started on Keppra 500 mg IV b.i.d. Even though she had no obvious seizure activity with tonic-colonic movements or bowel or bladder incontinence, I suspected that she continued to have some subclinical seizures which were identified by bouts of confusion and disorientation. She improved rapidly on the Keppra and was transitioned to oral Keppra. She understands that under [place] law that she cannot drive for 6 months or until she has had no seizure activity for 6 months. I will see her back in the office in 1 week and will recheck a Keppra level at that time. I will repeat an EEG as an outpatient in 3 months. She has a longstanding history of depression. She lost her mother 1 year ago. She has been living at her mother's home. Family notified me of the deplorable living conditions. According to the family, she was hoarding. There were multiple animals in the house. Carpets were soiled with cat and dog excrement. I had a long discussion with Ms. Velasquez about the importance of living in a clean, sanitary home environment. I told her that poor living conditions would predispose her to recurrent infections. She was agreeable to letting the family help her clean her house. I have made arrangements for a social worker health services through home health to assess her home needs. We will arrange for physical therapy. We will arrange for nurses to assess whether not she is taking her medicines and the efficacy of those medicines. I started Paxil 20 mg daily. She does have a longstanding history of hypertension. Her blood pressure remained well controlled on Ziac. Having reached maximum hospital benefit, the patient was discharged in stable condition. cc: Erick Odonnell MD
== END 2018-04-10 13:30 | disposition home health service (06) | DRG 101 ==
LOC: SUPCPDRO → ED 19:54 → SUATTDRO 04-06 03:19 → 4N 04-06 03:19
PROVIDERS: ADMIT Internal Medicine; ATTEND Internal Medicine
CPT/HCPCS: 51701; 70450; 70553; 71010; 71045; 71270; 80048; 80053; 80101; 80301; 80307; 80320; 80324; 80345; 80346; 80353; 80358; 80361; 80365; 81001; 81025; 82055; 82668; 82805; 82948; 83605; 83735; 83992; 84443; 84484; 85025; 87088; 93005; 94640; 94761; 95816; 96361; 96365; 96375; 97116; 97162; 97530; 99285; A9270; G0431; G0434; G0479; G0480; G6040; J1953; J2270; J2405; J2543; J7030; P9612; Q9967; XXXXX